=== PATIENT | female | born 1985 | race Caucasian/White ===

== ENCOUNTER 2016-03-30 12:46 | Emergency (ER) | payer MEDICAID ==
[2009-12-13 05:18] VITALS: BMI 36.5
[2016-03-30 13:16] LABS: BASOPHILS 0.2 % (0.0-2.0); EOSINOPHILS 3.4 % (0-7); HEMATOCRIT 40.4 % (36.0-48.0); HEMOGLOBIN 13.8 g/dL (12-16); IMMATURE GRANULOCYTES 0.2 % (0-5); LYMPHOCYTES 34.2 % (15-50); MCH 32.1 pg (26.0-34.0); MCHC 34.2 g/dL (31.0-37.0); MEAN PLATELET VOLUME 10.8 fL (7.4-10.4); MONOCYTES 5.8 % (2-11); NEUTROPHILS 56.2 % (40-80); RDW 13.1 % (11.5-14.5); WBC 6.2 10x3/uL (4.8-10.8)
[2016-03-30 13:24] LABS: PLATELET COUNT 160 10x3/uL (130-400)
[2016-03-30 13:38] LABS: APPEARANCE CLEAR (CLEAR); BACTERIA MANY /hpf (NONE SEEN); BILIRUBIN NEGATIVE (NEGATIVE); COLOR YELLOW (YELLOW); EPITHELIAL CELLS 0-5 /hpf (0-5); GLUCOSE NEGATIVE (NEGATIVE); KETONE NEGATIVE (NEGATIVE); LEUKOCYTE ESTERASE 1+ (NEGATIVE); NITRITE POSITIVE (NEGATIVE); PROTEIN NEGATIVE (NEGATIVE); SPECIFIC GRAVITY 1.015 (1.005-1.020); UROBILINOGEN NORMAL (NORMAL)
[2016-03-30 13:39] LABS: RED CELLS - URINE RARE /hpf (0-5)
== END 2016-03-30 15:01 | disposition left against medical advice (07) ==
LOC: D.ER 12:46
PROVIDERS: Emergency Medicine
DX: R10.30 Lower abdominal pain, unspecified (principal)

== ENCOUNTER 2016-03-31 08:28 | Emergency (ER) | payer MEDICAID ==
[2009-12-13 05:18] VITALS: BMI 36.5
[2016-03-31 10:24] LABS: BASOPHILS 0.4 % (0.0-2.0); EOSINOPHILS 4.4 % (0-7); HEMATOCRIT 40.7 % (36.0-48.0); IMMATURE GRANULOCYTES 0.2 % (0-5); LYMPHOCYTES 33.2 % (15-50); MCH 32.4 pg (26.0-34.0); MCHC 34.4 g/dL (31.0-37.0); MCV 94.2 fL (80.0-100.0); MEAN PLATELET VOLUME 11.2 fL (7.4-10.4); MONOCYTES 7.8 % (2-11); PLATELET COUNT 167 10x3/uL (130-400); RBC 4.32 10x6/uL (4.00-5.40); WBC 5.2 10x3/uL (4.8-10.8)
[2016-03-31 13:00] LABS: HCG SERUM NEGATIVE (NEGATIVE)
== END 2016-03-31 12:49 | disposition home or self-care (01) ==
LOC: D.ER 08:28
PROVIDERS: Emergency Medicine; Physician Assistant Medical
DX: N39.0 Urinary tract infection, site not specified (principal); F17.200 Nicotine dependence, unspecified, uncomplicated

== ENCOUNTER 2016-10-21 09:57 | Emergency (ER) | payer MEDICAID ==
[2009-12-13 05:18] VITALS: BMI 36.5
== END 2016-10-21 13:00 | disposition home or self-care (01) ==
LOC: D.ER 09:57
DX: S81.012A Laceration without foreign body, left knee, initial encounter (principal); Y04.2XXA Assault by strike against or bumped into by another person, initial encounter; Y93.89 Activity, other specified; Y92.89 Other specified places as the place of occurrence of the external cause; M25.522 Pain in left elbow; M25.512 Pain in left shoulder; F17.200 Nicotine dependence, unspecified, uncomplicated

== ENCOUNTER 2016-11-25 19:52 | Emergency (ER) | payer MEDICAID ==
[2009-12-13 05:18] VITALS: BMI 36.5
== END 2016-11-25 21:05 | disposition home or self-care (01) ==
LOC: D.ER 19:52
DX: N39.0 Urinary tract infection, site not specified (principal); R10.9 Unspecified abdominal pain; F17.200 Nicotine dependence, unspecified, uncomplicated